=== PATIENT | female | born 1930 | race Caucasian/White ===

== ENCOUNTER 2017-07-14 14:28 | Inpatient (IN) ==
--- NOTE | 2017-07-14 14:38 | Emergency Department Report ---
General Adult HPI - General Stated complaint: pneumonia,sepsis,weak tired Time Seen by Provider: 07/14/17 14:33 Source: EMS Mode of arrival: EMS - History of Present Illness HPI narrative: 86 YO F brought to ED via EMS from intermediate with report of "severe sepsis " and pneumonia. Patient's PCP ordered outpatient's labs and CXR today which indicated elevated WBC and a bilt. pneumonia. Patient arrives tachypneic. - Related Data Home Medications Medication Instructions Recorded Confirmed Clopidogrel Bisulfate [Plavix] 75 mg PO DAILY #0 08/02/12 07/14/17 Levothyroxine Sodium 75 mcg PO ACB #0 08/02/12 07/14/17 Simvastatin 40 mg PO HS #0 08/02/12 07/14/17 Carvedilol 3.125 mg PO BID #0 09/27/12 07/14/17 B2/Vits A,C,E/Lut/Zeaxanth/Min 1 tab PO DAILY 02/14/17 07/14/17 [Icaps Tablet] Furosemide [Lasix] 20 mg PO DAILY 02/14/17 07/14/17 Losartan Potassium 25 mg PO DAILY 02/14/17 07/14/17 Multivit,Calc,Mins/Iron/Folic 1 tab PO DAILY 02/14/17 07/14/17 [Women's Daily Caplet] Potassium Chloride [K-Dur] 10 meq PO DAILY 02/14/17 07/14/17 Acetaminophen [Acetaminophen Extra 500 mg PO Q4H PRN 07/14/17 07/14/17 Strength] Bisacodyl Supp [Dulcolax] 10 mg RECTALLY DAILY PRN 07/14/17 07/14/17 Calcium Carbonate/Vitamin D3 1 tab PO DAILY 07/14/17 07/14/17 [Calcium 500 + Vit D Caplet] Enoxaparin [Lovenox] 40 mg SQ DAILY 07/14/17 07/14/17 Mag Hydrox/Aluminum Hyd/Simeth 30 ml PO TID PRN 07/14/17 07/14/17 [Alum-Mag Hydroxide-Simeth Liq] Magnesium Hydroxide [Milk of 30 ml PO DAILY PRN 07/14/17 07/14/17 Magnesia] Oxycodone/Acetaminophen 5/325 1 tab PO Q4H PRN 07/14/17 07/14/17 [Percocet 5/325] Pantoprazole Sodium [Protonix] 40 mg PO DAILY 07/14/17 07/14/17 Peg 3350 238 G Bottle [Miralax] 17 gm PO DAILY PRN 07/14/17 07/14/17 Sennosides/Docusate Sodium 1 tab PO HS 07/14/17 07/14/17 [Senna-S Tablet] Simethicone [Gas-X] 125 mg PO Q6H PRN 07/14/17 07/14/17 Allergies Allergy/AdvReac Type Severity Reaction Status Date / Time amoxicillin Allergy Verified 07/14/17 14:38 ciprofloxacin Allergy Verified 07/14/17 14:38 clavulanic acid Allergy Verified 07/14/17 14:38 sulfamethoxazole Allergy Verified 07/14/17 14:38 Review of Systems All systems: reviewed and negative except as stated Respiratory: Reports: as per HPI, cough, dyspnea PFSH Patient Stated Medical History Cataracts Yes Congestive Heart Failure Yes Coronary Artery Disease Yes Hypertension Yes Myocardial Infarction Yes Other Cardiology Yes: hypokalemia Gastroesophageal Reflux Yes Disease Osteoarthritis Yes Other Musculoskeletal Yes: STEVE FX WRISTS Chemotherapy Yes: [facility] Medical History Sepsis (Acute Medical) Pneumonia (Acute Medical) Severe sepsis (Acute Medical) Atypical chest pain (Inactive Medical) Surgical History: Unable to obtain due to patient's condition Family History: Noncontributory - Social History Smoking status: Never smoker Housing: long term (intermediate) Current occupational status: retired Physical Exam - Limitations Limitations: altered mental status (slow to answer question, difficult to obtain HPI) - General General appearance: other (awak) - Normal Exams: Eyes:: No scleral icterus, irritation - Head Head exam: normocephalic - Eye Eye exam: Present: PERRL, EOMI - ENT ENT exam: Present: normal external ear exam - Neck Neck exam: Present: trachea midline - Respiratory Respiratory exam: Present: crackles (bilt. lower lobe crackles) - Expanded Respiratory Exam Location: Left: decreased breath sounds, Right: decreased breath sounds, Upper: decreased breath sounds, Lower: decreased breath sounds - Cardiovascular Cardiovascular exam: Present: other (HR 100 bpm) - Abdominal Exam Abdominal exam: Present: soft. Absent: distention, tenderness - Extremities Exam Extremities exam: Absent: tenderness - Skin Skin exam: Present: warm, dry - Expanded Neurological Exam Patient oriented to: Present: person Speech: Present: fluid speech (however slow to respond) - Psychiatric Psychiatric exam: Present: flat affect Course - Consultations Consultation #1: Dr. Calixto paged. Dr. Calixto arrived to the ED and I discussed patient HPI, labs, VS, exam findings and treatment in the ED. Dr. Calixto said that he anticipated this being a directed admit. He had standing order for direct admit. Dr. Calixto assume care at this time. Vital Signs Temperature 99.2 F 07/14/17 14:28 Pulse Rate 105 H 07/14/17 14:28 Respiratory Rate 28 H 07/14/17 14:28 Blood Pressure 110/53 07/14/17 14:28 Pulse Oximetry 90 07/14/17 14:28 Temperature 96.8 F 07/15/17 15:39 Pulse Rate 97 07/15/17 15:39 Respiratory Rate 24 07/15/17 15:39 Blood Pressure 108/65 07/15/17 15:39 Pulse Oximetry 97 07/15/17 15:39 Medical Decision Making - [facility] Narrative Medical decision making narrative: Patient's outpatient labs and CXR reviewed which indicates bilateral LLL pneumonia. Patient given 1 L of NS in ED. 1gm of cefepime give IV to cover HCAP sepsis. Patient VS improving. Dr. Calixto assume care of patient. - Differential Diagnosis Sepsis, Penumonia, SIRS, Altered Mental status, Hypoxia - Lab Data Result diagrams: 07/15/17 04:23 07/15/17 04:24 Lab Results 07/14/17 07/14/17 07/14/17 Range/Units 14:52 14:52 16:16 Turbidity < 20 (0-20) Sodium 127 L (134-144) MEQ/L Potassium 3.6 (3.6-5) MEQ/L Chloride 96 L (98-107) MEQ/L Carbon Dioxide 22 (22-30) MEQ/L Anion Gap 9 (5-15) MEQ/L BUN 22.0 H (7-17) MG/DL Creatinine 0.7 (0.7-1.2) MG/DL GFR Calculation 79 BUN/Creatinine Ratio 31 H (6-26) RATIO Glucose 163 H (65-110) MG/DL Calculated Osmolality 252 L (261-280) MOSM/KG Calcium 7.8 L (8.4-10.2) MG/DL Total Bilirubin 0.90 (0.20-1.30) MG/DL Icterus Index < 2 (0-7) AST 42 H (14-36) U/L ALT 50 (9-52) U/L Alkaline Phosphatase 124 (38-126) U/L Total Protein 6.9 (6.3-8.2) G/DL Albumin 3.5 (3.5-5.0) G/DL Globulin 3.4 (2.4-3.6) G/DL Albumin/Globulin Ratio 1.0 L (1.1-2.2) RATIO Plasma Lactate 2.3 H (0.6-2.2) MMOL/L Procalcitonin 1.45 NG/ML Specimen Hemolysis < 15 (0-25) Ur Collection Type Urine, clean catch Urine Color Yellow (YELLOW) Urine Clarity Sl cloudy Urine pH 5.5 (5.0-8.0) Ur Specific [place] 1.025 (1.015-1.025) Urine Protein 1+ A (NEGATIVE) Urine Glucose (UA) Negative (NEGATIVE) Urine Ketones Negative (NEGATIVE) Urine Occult Blood Negative (NEGATIVE) Urine Nitrate Negative (NEGATIVE) Urine Bilirubin Negative (NEGATIVE) Urine Urobilinogen 0.2 (NORMAL) EU/DL Ur Leukocyte Esterase Negative (NEGATIVE) Urine RBC None seen (0-3) /HPF Urine WBC 1-3 (0-5) /HPF Amorphous Sediment Few Urine Bacteria Trace H (NEGATIVE) Granular Casts 1-3 Ur Culture Indicated? Cult not indicated Disposition Clinical Impression: Sepsis Qualifiers: Sepsis type: sepsis due to unspecified organism Qualified Code(s): A41.9 - Sepsis, unspecified organism Pneumonia Qualifiers: Pneumonia type: due to unspecified organism Laterality: bilateral Lung location : lower lobe of lung Qualified Code(s): J18.9 - Pneumonia, unspecified organism Disposition: To [facility] Condition: Stable - Seen By: midlevel
[2017-07-14] MEDS ORDERED: SALINE FLUSH 10ml SYRINGE IVF PRN (14:42)
--- OUTSIDE RECORDS SUMMARY | 2017-07-14 14:49 | External Medical Summary ---
:1930 Author Organization [employer] Care Team Providers Name Role Phone Pop Wang Provider Role Unavailable Allergies No Known Allergies Problems Problem Type Condition Code Onset Dates Condition Status Problem S/P drug eluting coronary stent Z95.5 Active placement Problem s/p stenting, coronary V45.82 Active Problem CAD (coronary artery disease) I25.10 Active Problem Hypertension 401.9 Active Problem Dyslipidemia 272.4 Active Problem Claudication 443.9 Active Problem Coronary Artery Disease 414.01 Active Medications No Known Medications Results No Known Results Summary Purpose eClinicalWorks Submission
--- OUTSIDE RECORDS SUMMARY | 2017-07-14 14:49 | External Medical Summary ---
:1930 Author Organization [employer] Care Team Providers Name Role Phone Pop Wang Provider Role Unavailable Allergies No Known Allergies Problems Problem Type Condition Code Onset Dates Condition Status Problem Dyslipidemia 272.4 Active Problem Coronary Artery Disease 414.01 Active Problem Hypertension 401.9 Active Problem Long-term use of aspirin therapy Z79.82 Active Problem Dyslipidemia E78.5 Active Problem [facility] (current) use of Z79.02 Active antithrombotics/antiplatelets Problem s/p stenting, coronary V45.82 Active Problem Claudication 443.9 Active Problem CAD (coronary artery disease) I25.10 Active Problem S/P drug eluting coronary stent Z95.5 Active placement Medications Medication Code System Code Instructions Start Date End Date Status Dosage Lab Order NDC 0 Orders Jul 27, 2016 as directed Results No Known Results Summary Purpose [employer]ClinicalWorks Submission
--- OUTSIDE RECORDS SUMMARY | 2017-07-14 14:49 | External Medical Summary ---
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
--- OUTSIDE RECORDS SUMMARY | 2017-07-14 14:49 | External Medical Summary | Continuity of Care Document ---
:1930 Author Organization [facility] Allergies Medications Problems Procedures Code Description Performed By Performed On Pop Wang MD 11/24/2012 00.40 PROCEDURE ON SINGLE VESSEL Pop Wang MD 11/24/2012 00.45 INSERTION OF ONE VASCULAR STENT Pop Wang MD 11/24/2012 00.66 PERCUTANEOUS TRANSLUMINAL CORONARY ANGIOPLASTY [PT Pop Wang MD 11/24/2012 36.06 CORONARY ARTERY STENT INSERTION [id number] LEFT Pop Wang MD 11/24/2012 37.22 HEART CARDIAC CATH LT Pop Wang MD 11/24/2012 88.53 HEART ANGIOCARDIOGRAM CORONAR Pop Wang MD 11/24/2012 88.56 ARTERIOGR-2 CATH Encounters ACCT Visit Discharge Status Pt. Type Provider Facility Loc./Unit Complaint No. Date/Time [id number] 11/24/2012 [id number] 13:45:00 [facility] [id number] 06/28/2012 06/29/2012 [id number] 10:46:00 19:20:00 [facility] [id number] 05/06/2012 05/10/2012 DIS Inpatient Robert Wang MDN [id number] 09:28:00 17:45:00 [facility] [id number] 07/01/2017 Document [id number] 09:16:00 Registration
--- OUTSIDE RECORDS SUMMARY | 2017-07-14 14:49 | External Medical Summary ---
:1930 Author Organization [employer] Care Team Providers Name Role Phone Felipe Pop Provider Role Unavailable Allergies, Adverse Reactions, Alerts Substance Reaction Event Type N.K.D.A. Info Not Available Non Drug Allergy Problems Problem Type Condition Code Onset Dates Condition Status Assessment S/P drug eluting coronary stent Z95.5 Active placement Problem Dyslipidemia 272.4 Active Assessment CAD (coronary artery disease) I25.10 Active Assessment Dyslipidemia E78.5 Active Problem CAD (coronary artery disease) I25.10 Active Problem S/P drug eluting coronary stent Z95.5 Active placement Problem Dyslipidemia E78.5 Active Problem Coronary Artery Disease 414.01 Active Problem Hypertension 401.9 Active Problem s/p stenting, coronary V45.82 Active Problem Claudication 443.9 Active Medications Medication Code Code Instructions Start End Date Status Dosage System Date [facility] 49307-97 81 MG Orally qd 1 tab 27-26 [place] [address]-29 40 MG Orally 1 tablet 55-10 [place] [address]-92 40 MG Orally 1 tablet Sodium 07-01 Once a day Eye Caps NDC 60844-39 bid 1 tab 970 [place] [address]-98 3.125 MG Orally 1 tablet 51-01 Tw[place] [address]-87 75 MCG Orally qd 1 tab 22-00 Multivitamins NDC 08263-03 Orally qd 1 tab 46-10 [place] [address]-50 Orally qd as dir 34-02 [place] [address]-30 600 MG Orally 1 tab 0[address] [place] [address]-75 75 MG Orally 1 tablet Bisulfate 14-05 [place] [address]-75 0.4 MG Oct 05, 1 tab 97-25 Sublingual prn 2011 chest discomfort Procedures Procedure Coding System Code Date Office Visit, Est Pt., Level 4 CPT-4 14734 Jun 28, 2015 ELECTROCARDIOGRAM, COMPLETE CPT-4 41194 Jun 28, 2015 Vital Signs Date/Time: Jun 28, 2015 BMI 22.25 Index Weight 125.6 lbs Height 5 ft 3 in in Cardiac Monitoring Heart Rate 79 /min Oximetry 97% % Blood Pressure Diastolic 80 mm Hg Blood Pressure Systolic 158 mm Hg Results No Known Results Summary Purpose eClinicalWorks Submission
[2017-07-14] MEDS ORDERED: CEFEPIME 1 GM in NS 100 ML IV ONE (14:58)
[2017-07-14] MEDS ORDERED: NS 500 ML IV ONE (15:25)
[2017-07-14 17:11] VITALS: BMI 22.5
[2017-07-14] MEDS: NS 1,000 ML IV SCH (18:49)
[2017-07-14] MEDS: CARVEDILOL 3.125 MG TABLET PO SCH (18:49)
[2017-07-14] MEDS: AZITHROMYCIN IV 500 MG in NS 250ml 250 ML IV SCH (20:31)
[2017-07-14] MEDS: SIMVASTATIN 40 MG TABLET PO SCH (21:34)
[2017-07-14] MEDS: DOXYCYCLINE 100 MG in NS 250ml 250 ML IV SCH (22:31)
[2017-07-15] MEDS ORDERED: LEVOTHYROXINE 75 MCG TABLET PO SCH (06:30)
[2017-07-15] MEDS ORDERED: PANTOPRAZOLE 40 MG TABLET PO SCH (06:30)
[2017-07-15] MEDS: NS 1,000 ML IV SCH (08:11)
[2017-07-15] MEDS: DOXYCYCLINE 100 MG in NS 250ml 250 ML IV SCH ×2 (08:39→21:35)
[2017-07-15] MEDS: CARVEDILOL 3.125 MG TABLET PO SCH ×2 (08:40→18:35)
[2017-07-15] MEDS ORDERED: CLOPIDOGREL 75 MG TABLET PO SCH (09:00)
[2017-07-15] MEDS ORDERED: LOSARTAN 50 MG TABLET PO SCH (09:00)
[2017-07-15] MEDS ORDERED: Oxycodone/Acetaminophen 5/325 1 TAB PO PRN (13:48)
[2017-07-15] MEDS ORDERED: POLYETHYL GLYCOL 3350 17gm PACKET PO PRN (13:48)
[2017-07-15] MEDS ORDERED: MAG-AL + SIM ORAL LIQUID 30ml PO PRN (13:48)
[2017-07-15] MEDS ORDERED: BISACODYL 10 MG SUPPOSITORY RECTALLY PRN (13:48)
[2017-07-15] MEDS ORDERED: SIMETHICONE 125 MG CAPSULE PO PRN (13:48)
--- NOTE | 2017-07-15 14:13 | Progress Note ---
- Date 07/15/17 Subjective: F/U: Severe sepsis, pneumonia Dr Kate - covering physician for Dr Calixto. Still feeling tired and weak. Breathing slightly better that yesterday, but still having cough and congestion. Notes some sputum. No pain with breathing or chest wall pain. Appetite decreased; not hungry. No nausea. Bowels slow since hip surgery. Post op pain improving but still has discomfort at times. Has been making progress with therapy since in skilled at [facility]. Objective Vital signs: Temperature 96.2 F L 07/15/17 08:20 Pulse Rate 84 07/15/17 08:20 Respiratory Rate 22 07/15/17 08:20 Blood Pressure 106/56 07/15/17 08:20 Pulse Oximetry 96 07/15/17 00:00 Height/Weight/BMI: Height 1.6 m Weight 58.2 kg Body Mass Index 22.5 - Constitutional Present: well nourished, well developed, cooperative, other (Looks tired and weak. ) - Routine HEENT Exam Head: Present: normocephalic Eye: Present: EOMI, PERRL ENT: Present: mucous membranes moist - Routine Respiratory Exam Present: decreased breath sounds. Absent: respiratory distress, rhonchi, wheezes, crackles - Routine Cardiovascular Exam Present: RRR, no murmur - Routine Abdominal Exam Present: soft, non distended, non tender. Absent: normoactive bowel sounds ( Decreased bowel sounds ) - Routine Extremities Exam Present: edema (+1 BLE), pulses intact. Absent: cyanosis, clubbing - Routine Musculoskeletal Exam Musculoskeletal: Present: no clubbing or cyanosis, normal strength - Routine Skin Exam Present: dry, warm - Routine Neurological Exam Present: alert, oriented X3, CN II-XII intact, moving all extremities, vision grossly intact, hearing grossly intact, normal speech. Absent: motor deficit, altered mental status - Routine Psychiatric Exam Present: normal affect, normal thought process, cooperative. Absent: anxious Results - Labs CBC & Chem 7: 07/15/17 04:23 07/15/17 04:24 Microbiology Results: Microbiology 07/14/17 20:34 Sputum, Expectorated Gram Stain - Final 07/14/17 20:34 Sputum, Expectorated Sputum Culture - Preliminary Early growth Assessment and Plan (1) Severe sepsis Current visit: Yes Status: Acute (2) Pneumonia Current visit: Yes Status: Acute Assessment and Plan: Assessment Severe sepsis secondary to pneumonia Manifestations of sepsis: Leukocytosis with shift, Lactate 2.3, elevated blood sugar, hypoxemia Pneumonia Leukocytosis Hyponatremia (POA) Acute anemia - suspect dilutional decrease since admission CAD with Hx MD HTN HDL Hypothyroidism GERD Constipation Recent right hip fracture Plan - Dr Kate, covering for Dr Calixto Continue with antibiotics as outlined by Dr Calixto - IV Doxycycline and azithromycin. IVF of NS at 75cc/hr for volume support. BP stable and lactate stable. Continue supplemental O2, weaning as able. Start IS and Acapella for respiratory support. With decrease of hemoglobin from 10.7 to 8.8, will check iron, ferritin, and Vit B12. Type and screen. Monitor. Most likely decrease dilutional, but patient has been on Lovenox post hip surgery. Start SCD for DVT prevention. Will hold on Lovenox for now. Continue with medications to promote bowel function due to constipation. Continue pain control medications as on Skilled. Will consult PT/OT to continue restorative modalities. Repeat CBC in am due to sepsis. Check BMP in am due to IVF use and medications. Case discussed with Dr Calixto last night in checkout. Time spent with patient care 25 minutes. DVT Prophylaxis: SCD's - Time spent with patient Time with patient PN: 25 minutes Hospital Course Summary Disclaimer: The visit summary below is not to be considered part of the above Progress Note. Hospital Course: 07/15/17 - Dr Kate, covering for Dr Calixto Continue with antibiotics as outlined by Dr Calixto - IV Doxycycline and azithromycin. IVF of NS at 75cc/hr for volume support. BP stable and lactate stable. Continue supplemental O2, weaning as able. Start IS and Acapella for respiratory support. With decrease of hemoglobin from 10.7 to 8.8, will check iron, ferritin, and Vit B12. Type and screen. Monitor. Most likely decrease dilutional, but patient has been on Lovenox post hip surgery. Start SCD for DVT prevention. Will hold on Lovenox for now. Continue with medications to promote bowel function due to constipation. Continue pain control medications as on Skilled. Will consult PT/OT to continue restorative modalities. Repeat CBC in am due to sepsis. Check BMP in am due to IVF use and medications.
[2017-07-15] MEDS ORDERED: NS 1,000 ML IV SCH (14:15)
[2017-07-15] MEDS ORDERED: POLYETHYL GLYCOL 3350 17gm PACKET PO SCH (14:45)
[2017-07-15 15:40] VITALS: BP 108/65; PULSE 97; RESP 24; TEMP 96.8; O2SAT 97
[2017-07-15] MEDS: AZITHROMYCIN IV 500 MG in NS 250ml 250 ML IV SCH (19:37)
[2017-07-15] MEDS ORDERED: ONDANSETRON 4 MG/2 ML INJECTION IVP PRN (20:40)
[2017-07-15] MEDS: SIMVASTATIN 40 MG TABLET PO SCH (20:43)
[2017-07-15] MEDS ORDERED: SENNA + DOCUSATE TABLET PO SCH (21:00)
[2017-07-15] MEDS ORDERED: ATROPINE 1 MG/10 ML SYRINGE IVP ONE (22:00)
[2017-07-15] MEDS ORDERED: EPINEPHRINE 1 MG/10 ML PFS IV ONE (22:00)
[2017-07-16] MEDS ORDERED: MULTI-VITAMIN + MINERAL TABLET PO SCH (09:00)
[2017-07-16] MEDS ORDERED: CALCIUM 500 + VIT D 200 TABLET PO SCH (09:00)
--- NOTE | 2017-07-16 09:45 | XRay Report ---
INDICATION: bilat pneumonia, leukocytosis, sepsis PROCEDURE: CHEST 2-VIEWS UPRIGHT (PA & LAT) Encounter: Initial COMPARISON: July 14, 2017 FINDINGS: Continued bilateral airspace consolidation without significant change. Increasing small bilateral effusions. No pneumothorax. Heart size and mediastinal contours are stable. Impression: Bilateral pneumonia. Increasing small pleural effusions. .
== END 2017-07-15 22:01 | disposition expired | DRG 871 ==
LOC: ED 14:28 → MED 16:58
PROVIDERS: ADMIT Internal Medicine; ATTEND Internal Medicine